=== PATIENT | male | born 1995 | race Caucasian/White ===

== ENCOUNTER → 2021-08-04 | Outpatient (CLI) | payer BC, OTHER ==
--- NOTE | 2021-08-05 02:37 | RAD ---
INDICATION: Scrotal lump. COMPARISON: None. TECHNIQUE: Grayscale, color and spectral doppler ultrasound images obtained of the scrotum. FINDINGS: Right Testicle: 43 x 28 x 20 mm. Vascular flow is identified. Left Testicle: 42 x 30 x 22 mm. Vascular flow is identified. Within the subcutaneous soft tissues of the left scrotal wall at the area of lump there is a subtle e chogenic nodule with hypoechoic rim within the subcutaneous soft tissues measuring 6 x 5 mm. IMPRESSION: * No worrisome intratesticular mass. * Within the subcutaneous soft tissues at the region of concern for lump there is a mixed echogenici ty nodule seen with nonspecific appearance. Couple of possible causes would include a skin associated lesion or lipoma with fat necrosis an additional consideration. Another possible cause would include focal inflammation to the area. Follow-up could be obtained to ensure no growth Electronically signed by: Elio Malloy MD (08/04/2021 5:28 PM) [id number]
== END ==
LOC: US 16:27
PROVIDERS: ATTEND Physician Assistant
DX: N49.2 Inflammatory disorders of scrotum (principal); L72.9 Follicular cyst of the skin and subcutaneous tissue, unspecified
CPT/HCPCS: 76870